=== PATIENT | male | born 1985 | race Caucasian/White ===

== ENCOUNTER 2021-10-18 13:49 | Emergency (ER) | payer BC, OTHER ==
[~2021-10-18] VITALS: Ht 177.8 cm; Wt 73.5 kg
[2021-10-18 13:57] VITALS: BP 131/89
[2021-10-18] MEDS ORDERED: APIXABAN 5 MG TAB PO ONE (15:00)
[2021-10-18] MEDS ORDERED: APIX5TAB4 PO (15:03)
== END 2021-10-18 15:48 | disposition home or self-care (01) ==
LOC: ER 13:49
DX: I82.401 Acute embolism and thrombosis of unspecified deep veins of right lower extremity (principal); F17.210 Nicotine dependence, cigarettes, uncomplicated
CPT/HCPCS: 93971

== ENCOUNTER 2021-10-21 13:24 | Emergency (ER) | payer BC ==
[~2021-10-21] VITALS: Ht 177.8 cm; Wt 73.0 kg
[~2021-10-21 13:24] MED LIST: APIX5TAB4 PO
[2021-10-21 13:54] VITALS: BP 135/67
== END 2021-10-21 14:21 | disposition home or self-care (01) ==
LOC: ER 13:24
DX: I82.401 Acute embolism and thrombosis of unspecified deep veins of right lower extremity (principal); F17.210 Nicotine dependence, cigarettes, uncomplicated; Z79.01 Long term (current) use of anticoagulants